=== PATIENT | female | born 1985 | race Native Hawaiian/Other Pacific Islander ===

== ENCOUNTER 2019-02-06 23:42 | Emergency (ER) | payer MEDICARE ==
--- NOTE | 2019-02-07 00:15 | ERPHSYRPT ---
- History of Present Illness Time Seen by Provider: 02/06/19 23:55 Historian: patient Exam Limitations: clinical condition (PA) Patient Subjective Stated Complaint: pt is alert and oriented. pt comes in via ambulance with c/o sharp right side pain. pt does not recall an injury to her side. pt states she was lying in bed when the pain started. she is tender to touch and she states it's painful to take a deep breath. pt skin pwd. pt radial pulses equal and strong. pt pulse is 86bmp. bp 119/79. respiratory rate of 20. Triage Nursing Assessment: see above Physician History: PATIENT WITH A HISTORY OF ASTHMA COMPLAINS OF ACUTE ONSET OF RIGHT SIDED RIB PAIN AT 10PM TONIGHT EXACERBATED UPON INSPIRATION AND MOTION OF TORSO. DENIES COUGH, DYSPNEA, DIFFICULTY BREATHING, FEVER, RADIATION OF PAIN TO NECK, JAW OR ARMS. Timing/Duration: today Activities at Onset: none Quality: sharpness, stabbing Location: other (RIGHT LATERAL RIBS) Chest Pain Radiation: no radiation Severity of Pain-Max: moderate Modifying Factors: Improves With: movement, change in position Prior Chest Pain/Cardiac Workup: no prior chest pain Nitro Today/Relief: no nitro taken today Aspirin Treatment Today: no aspirin today Allergies/Adverse Reactions: No Known Drug Allergies Allergy (Unverified 02/06/19 23:55) Immunizations Up to Date: Yes - Review of Systems Constitutional: No Fever, No Chills Eyes: No Symptoms Ears, Nose, & Throat: No Symptoms Respiratory: No Symptoms, No Cough, No Dyspnea Cardiac: Chest Pain, No Edema, No Syncope Abdominal/Gastrointestinal: No Symptoms, No Abdominal Pain, No Nausea, No Vomiting, No Diarrhea Genitourinary Symptoms: No Dysuria Musculoskeletal: No Symptoms, No Back Pain, No Neck Pain Skin: No Rash Neurological: No Dizziness, No Focal Weakness, No Sensory Changes Psychological: No Symptoms Endocrine: No Symptoms All Other Systems: Reviewed and Negative - Past Medical History Neurological History: No Pertinent History ENT History: No Pertinent History Cardiac History: No Pertinent History Respiratory History: Asthma, COPD Endocrine Medical History: No Pertinent History Musculoskeletal History: No Pertinent History GI Medical History: No Pertinent History History: No Pertinent History Psycho-Social History: No Pertinent History Female Reproductive Disorders: No Pertinent History Other Medical History: Pt notes pain in her hand if she writes too much - Past Surgical History Past Surgical History: No - Social History Smoking Status: Former smoker Drug Use: none - Female History Hx Now: No - Nursing Vital Signs Nursing Vital Signs: Initial Vital Signs Pulse Rate 94 H 02/06/19 23:49 Respiratory Rate 18 02/06/19 23:49 Blood Pressure 119/79 02/06/19 23:49 O2 Sat by Pulse Oximetry 100 02/06/19 23:49 Pain Scale Pain Intensity 0 - Physical Exam General Appearance: no apparent distress, alert Eye Exam: PERRL/EOMI, eyes nml inspection Ears, Nose, Throat Exam: normal ENT inspection, moist mucous membranes Neck Exam: normal inspection, non-tender, supple, full range of motion Respiratory Exam: normal breath sounds, chest tenderness (TENDERNESS RIGHT LATERAL RIBS 4TH TO 12 TH, NO CREPITUS OR ECCHYMOSIS), lungs clear, No respiratory distress Cardiovascular Exam: regular rate/rhythm, normal heart sounds Gastrointestinal/Abdomen Exam: soft, No tenderness, No mass Back Exam: normal inspection, No CVA tenderness, No vertebral tenderness Extremity Exam: normal inspection, normal range of motion Neurologic Exam: alert, oriented x 3, cooperative, normal mood/affect, sensation nml, No motor deficits Skin Exam: normal color, warm, dry SpO2 Interpretation: normal SpO2: 100 - Course EKG Interpreted by Me: RATE, Sinus Rhythm (RATE OF 78), NORMAL AXIS - CT Exams Chest CT Interpretation: Tele-radiologist Report (NO GROSS EVIDENCE FOR PULMONARY EMBOLIUS IDENTIFIED), Other (PATCHY INFILTRATE SEEN AT POSTERIOR ASPECT OF THE RIGHT UPPER LOBE, LEFT UPPER LOBE, AND LEFT LOWER LOBE) Ordered Tests: Active Orders 24 hr Category Date Time Status Instrument Technologist STAT Care 02/07/19 00:08 Active EKG-ER Only STAT Care 02/07/19 00:07 Active IV Insertion STAT Care 02/07/19 00:07 Active CHEST 1 VIEW (PORTABLE) Stat Exams 02/07/19 00:07 Taken CHEST WITH CONTRAST [CT] Stat Exams 02/07/19 02:38 Taken BMP Stat Lab 02/07/19 00:24 Completed CBC W DIFF Stat Lab 02/07/19 00:24 Completed D-DIMER QUANTITATION Stat Lab 02/07/19 00:24 Completed HCG,QUALITATIVE URINE Stat Lab 02/07/19 02:19 Completed TROPONIN Q3H Lab 02/07/19 00:24 Completed TROPONIN Q3H Lab 02/07/19 06:15 Ordered TROPONIN Q3H Lab 02/07/19 09:15 Ordered TROPONIN Q3H Lab 02/07/19 12:15 Ordered UA W/RFX UR CULTURE Stat Lab 02/07/19 02:19 Completed Medication Summary Discontinued Medications Generic Name Dose Route Start Last Admin Trade Name Sukh PRN Reason Stop Dose Admin Sodium Chloride Confirm 02/07/19 01:20 Sodium Chloride 0.9% 1000 Ml Administered 02/07/19 01:21 Dose 1,000 mls @ ud .ROUTE .STK-MED ONE Ceftriaxone Sodium/Dextrose 1 g in 50 mls @ 100 mls/hr 02/07/19 04:27 05:01 Rocephin 1 Gm-D5w 50 Ml Bag IV 02/07/19 04:56 Infused STAT STA Infusion Ceftriaxone Sodium/Dextrose Confirm 02/07/19 04:28 Rocephin 1 Gm-D5w 50 Ml Bag Administered 02/07/19 04:29 Dose 1 g in 50 mls @ ud IV .STK-MED ONE Lab/Rad Data: Laboratory Result Diagrams 02/07/19 00:24 02/07/19 00:24 Laboratory Results 02/07/19 02/07/19 02/07/19 Range/Units 02:19 02:19 00:24 WBC (4.0-10.5) K/mm3 RBC (4.1-5.4) M/mm3 Hgb (12.0-16.0) gm/dl Hct (35-47) % MCV (78-100) fl MCH (26-32) pg MCHC (32-36) g/dl RDW (11.5-14.0) % Plt Count (150-450) K/mm3 MPV (6-9.5) fl Gran % (36.0-66.0) % Eos # (Auto) (0-0.5) Absolute Lymphs (auto) (1.0-4.6) Absolute Monos (auto) (0.0-1.3) Lymphocytes % (24.0-44.0) % Monocytes % (0.0-12.0) % Eosinophils % (0.00-5.0) % Basophils % (0.0-0.4) % Absolute Granulocytes (1.4-6.9) Basophils # (0-0.4) D-Dimer (215-500) ng/mL Sodium (137-145) mmol/L Potassium (3.5-5.1) mmol/L Chloride (98-107) mmol/L Carbon Dioxide (22-30) mmol/L Anion Gap (5-15) MEQ/L BUN (7-17) mg/dL Creatinine (0.52-1.04) mg/dL Estimated GFR ML/MIN Glucose (74-106) mg/dL Calcium (8.4-10.2) mg/dL Troponin I < 0.012 (0.000-0.034) ng/mL Urine Color YELLOW (YELLOW) Urine Appearance SLIGHTLY CLOUDY (CLEAR) Urine pH 7.0 (5-6) Ur Specific Holt 1.011 (1.005-1.025) Urine Protein NEGATIVE (Negative) Urine Ketones NEGATIVE (NEGATIVE) Urine Blood NEGATIVE (0-5) Marquis/ul Urine Nitrite NEGATIVE (NEGATIVE) Urine Bilirubin NEGATIVE (NEGATIVE) Urine Urobilinogen NEGATIVE (0-1) mg/dL Ur Leukocyte Esterase NEGATIVE (NEGATIVE) Urine WBC (Auto) 0-2 (0-5) /HPF Urine RBC (Auto) NONE SEEN (0-2) /HPF U Epithel Cells (Auto) RARE (FEW) /HPF Urine Bacteria (Auto) NONE (NEGATIVE) /HPF Unidentified Crystals 2-5 (NEGATIVE) /HPF Amorphous Crystals MODERATE (NEGATIVE) /HPF Urine Culture Reflexed NO (NO) Urine Glucose NEGATIVE (NEGATIVE) mg/dL Urine HCG, Qual NEGATIVE (Negative) 02/07/19 02/07/19 02/07/19 Range/Units 00:24 00:24 00:24 WBC 8.9 (4.0-10.5) K/mm3 RBC 4.03 L (4.1-5.4) M/mm3 Hgb 12.3 (12.0-16.0) gm/dl Hct 37.8 (35-47) % MCV 93.8 (78-100) fl MCH 30.5 (26-32) pg MCHC 32.5 (32-36) g/dl RDW 12.6 (11.5-14.0) % Plt Count 301 (150-450) K/mm3 MPV 10.1 H (6-9.5) fl Gran % 73.0 H (36.0-66.0) % Eos # (Auto) 0.15 (0-0.5) Absolute Lymphs (auto) 1.57 (1.0-4.6) Absolute Monos (auto) 0.67 (0.0-1.3) Lymphocytes % 17.6 L (24.0-44.0) % Monocytes % 7.5 (0.0-12.0) % Eosinophils % 1.7 (0.00-5.0) % Basophils % 0.2 (0.0-0.4) % Absolute Granulocytes 6.50 (1.4-6.9) Basophils # 0.02 (0-0.4) D-Dimer 714 H* (215-500) ng/mL Sodium 142 (137-145) mmol/L Potassium 4.0 (3.5-5.1) mmol/L Chloride 107 (98-107) mmol/L Carbon Dioxide 26 (22-30) mmol/L Anion Gap 13.8 (5-15) MEQ/L BUN 12 (7-17) mg/dL Creatinine 0.80 (0.52-1.04) mg/dL Estimated GFR > 60.0 ML/MIN Glucose 100 (74-106) mg/dL Calcium 9.3 (8.4-10.2) mg/dL Troponin I (0.000-0.034) ng/mL Urine Color (YELLOW) Urine Appearance (CLEAR) Urine pH (5-6) Ur Specific Holt (1.005-1.025) Urine Protein (Negative) Urine Ketones (NEGATIVE) Urine Blood (0-5) Marquis/ul Urine Nitrite (NEGATIVE) Urine Bilirubin (NEGATIVE) Urine Urobilinogen (0-1) mg/dL Ur Leukocyte Esterase (NEGATIVE) Urine WBC (Auto) (0-5) /HPF Urine RBC (Auto) (0-2) /HPF U Epithel Cells (Auto) (FEW) /HPF Urine Bacteria (Auto) (NEGATIVE) /HPF Unidentified Crystals (NEGATIVE) /HPF Amorphous Crystals (NEGATIVE) /HPF Urine Culture Reflexed (NO) Urine Glucose (NEGATIVE) mg/dL Urine HCG, Qual (Negative) - Progress Progress: improved Progress Note: 02/07/19 04:33 IV NORMAL SALINE 100ML/HR ROCEPHIN 1GM IVPB Blood Culture(s) Obtained: Yes Antibiotics given: Yes Counseled pt/family regarding: lab results, diagnosis, need for follow-up, rad results - Departure Departure Disposition: Home Clinical Impression: ACUTE BRONCHITIS, [place] Condition: Stable Critical Care Time: No Referrals: MARI BARKER [Primary Care Provider] - Additional Instructions: ANTIBIOTIC CEFDINIR 300MG TWICE DAILY FOR 10 DAYS. TORADOL 10MG EVERY 6 HOURS FOR PAIN NEEDED. FOLLOWUP WITH YOUR PRIMARY CARE PROVIDER FOR FOLLOWUP. Prescriptions: Ketorolac Tromethamine [Toradol] 10 mg PO Q6H PRN PRN #20 tablet PRN Reason: Pain Cefdinir [Omnicef] 300 mg PO BID #20 capsule
[2019-02-07 00:27] LABS: BASOPHIL % 0.2 % (0.0-0.4); Basophil (Absolute #) 0.02 (0-0.4); Eosinophil % 1.7 % (0.00-5.0); Eosinophil (Absolute #) 0.15 (0-0.5); Hematocrit 37.8 % (35-47); Hemoglobin 12.3 gm/dl (12.0-16.0); Lymphocyte (Absolute #) 1.57 (1.0-4.6); Lymphocytes % 17.6 % (24.0-44.0); Mean Cell Volume 93.8 fl (78-100); Mean Corpuscular Hemoglobin 30.5 pg (26-32); Mean Corpuscular Hgb Concent. 32.5 g/dl (32-36); Mean Platelet Volume 10.1 fl (6-9.5); Monocyte (Absolute #) 0.67 (0.0-1.3); Monocytes % 7.5 % (0.0-12.0); Platelet Count 301 K/mm3 (150-450); Red Blood Count 4.03 M/mm3 (4.1-5.4); Red Cell Distribution Width 12.6 % (11.5-14.0); White Blood Count 8.9 K/mm3 (4.0-10.5)
[2019-02-07 00:39] LABS: ANION GAP 13.8 MEQ/L (5-15); BLOOD UREA NITROGEN 12 mg/dL (7-17); CHLORIDE 107 mmol/L (98-107); Calcium 9.3 mg/dL (8.4-10.2); Carbon Dioxide 26 mmol/L (22-30); Glucose 100 mg/dL (74-106); SODIUM 142 mmol/L (137-145)
[2019-02-07] MEDS ORDERED: Sodium Chloride 0.9% 1000 ML 1,000 ML ONE (01:20)
[2019-02-07 02:15] VITALS: BP 108/62
[2019-02-07 02:44] LABS: Amourphous Crystal MODERATE /HPF (NEGATIVE); Appearance SLIGHTLY CLOUDY (CLEAR); Bilirubin NEGATIVE (NEGATIVE); Blood NEGATIVE Ery/ul (0-5); Epithelial Cells RARE /HPF (FEW); Glucose NEGATIVE (NEGATIVE); Ketones NEGATIVE (NEGATIVE); Leukocyte Esterase NEGATIVE (NEGATIVE); Nitrite NEGATIVE (NEGATIVE); Protein,Urine Dip NEGATIVE (Negative); Specific Gravity 1.011 (1.005-1.025); Urobilinogen NEGATIVE mg/dL (0-1); WBC 0-2 /HPF (0-5)
[2019-02-07 02:45] LABS: RBC NONE SEEN /HPF (0-2)
[2019-02-07] MEDS ORDERED: ROCEPHIN 1 Gm-D5w 50 ml Bag** 1 G/50 ML IVPB IV STA (04:27)
[2019-02-07 04:28] VITALS: O2SAT 100
[2019-02-07] MEDS ORDERED: ROCEPHIN 1 Gm-D5w 50 ml Bag** 1 G/50 ML IVPB IV ONE (04:28)
[2019-02-07 05:00] VITALS: PULSE 75
--- NOTE | 2019-02-07 08:55 | XRAY ---
Indication: Right chest pain. Elevated d-dimer. Multiple contiguous axial images obtained through the chest using total 105 cc of Isovue-370 contrast and PE protocol. Comparison: None There is adequate opacification of the pulmonary arteries. However respiration artifact limits evaluation of the more distal lobar and segmental branches. No obvious central pulmonary embolus. Heart is not enlarged. Aorta is normal in course and caliber. No pathologic mediastinal/hilar lymphadenopathy. Examination of the lung parenchyma demonstrates patchy airspace opacities bilaterally. The largest focus is in the posterior right upper lobe. No pleural effusion/thickening. Bony thorax intact with minimal degenerative changes throughout the spine. Tiny T7 bone island. Limited upper abdomen including adrenal glands unremarkable. Impression: 1. Pulmonary embolus evaluation limited by respiration artifact. No large central pulmonary embolus. 2. Patchy bilateral airspace disease. Comment: Preliminary interpretation was made by C. No critical discrepancy. CTDI 27.93
--- NOTE | 2019-02-07 08:56 | XRAY ---
Indication: Right chest pain. Comparison: None Portable chest demonstrates right mid lung patchy airspace opacity. Remaining heart and lungs normal. Bony thorax intact with minimal degenerative changes.
== END 2019-02-07 05:26 | disposition home or self-care (01) ==
LOC: ED 23:42
DX: J20.9 Acute bronchitis, unspecified (principal)
CPT/HCPCS: 36000; 36415; 71045; 71260; 80048; 81001; 84484; 84703; 85025; 85379; 93005; 93041; 96365; 99284; J0696